=== PATIENT | female | born 1970 | race Caucasian/White ===

== ENCOUNTER → 2020-11-24 | Outpatient (CLI) | payer OTHER ==
[~2020-11-24] MED LIST: B-125000 MCG PO; EYE VITAMIN PO; FENOFIBRATE160 MG PO; FISH OIL 1,2001 EAC3 PO; HUMIRA20 MG/0.2 SUBQ; HYDROCHLOROTHIA25 M1 PO; HYDROCODON-ACE1 EAC7 PO; HYDROXYZINE HCL25 M2 PO; HYOSCYAMINE0.125 MG PO; LEVO-T100 MCG PO; METHOCARBAMOL500 M2 PO; PALMITOYLETHANOLAMID PO; PHENAZOPYRIDIN200 M2 PO; PROBIOTIC1 EAC7 PO; RED YEAST RICE600 MG PO; RELAFEN500 M1 PO; SERTRALINE HCL100 MG PO; TOPAMAX100 MG PO; TRAMADOL 50 MG50 MG PO; TURMERIC 500 M1 EACH PO; VITAMIN C1000 MG PO; VITAMIN D PO; VITAMIN D21250 MCG PO; XANAX 0.25 MG0.25 MG PO; ZANAFLEX4 M1 PO; ZETIA10 MG PO; ZOLMITRIPTAN2.5 MG PO; [UNRECOGNIZED DRUG - OTHER] PO
== END ==
LOC: M.PC 11:40
PROVIDERS: ATTEND Anesthesiology Pain Medicine
DX: G43.909 Migraine, unspecified, not intractable, without status migrainosus (principal); M45.9 Ankylosing spondylitis of unspecified sites in spine; B02.29 Other postherpetic nervous system involvement; K21.9 Gastro-esophageal reflux disease without esophagitis; E11.9 Type 2 diabetes mellitus without complications; N30.10 Interstitial cystitis (chronic) without hematuria; E03.9 Hypothyroidism, unspecified; M19.90 Unspecified osteoarthritis, unspecified site; H81.20 Vestibular neuronitis, unspecified ear; M25.552 Pain in left hip; M50.00 Cervical disc disorder with myelopathy, unspecified cervical region; M50.10 Cervical disc disorder with radiculopathy, unspecified cervical region; M79.7 Fibromyalgia; F32.9 Major depressive disorder, single episode, unspecified; F41.9 Anxiety disorder, unspecified; Z90.710 Acquired absence of both cervix and uterus; Z79.899 Other long term (current) drug therapy; Z88.1 Allergy status to other antibiotic agents; Z88.0 Allergy status to penicillin

== ENCOUNTER → 2020-12-22 | Outpatient (CLI) | payer OTHER | LOC: M.PC 10:08 | PROVIDERS: ATTEND Anesthesiology Pain Medicine | DX: G43.909 Migraine, unspecified, not intractable, without status migrainosus (principal); K21.9 Gastro-esophageal reflux disease without esophagitis; E11.9 Type 2 diabetes mellitus without complications; M19.90 Unspecified osteoarthritis, unspecified site; E03.9 Hypothyroidism, unspecified; M25.552 Pain in left hip; M50.00 Cervical disc disorder with myelopathy, unspecified cervical region; M50.10 Cervical disc disorder with radiculopathy, unspecified cervical region; F32.9 Major depressive disorder, single episode, unspecified; F41.9 Anxiety disorder, unspecified; Z79.899 Other long term (current) drug therapy; Z79.891 Long term (current) use of opiate analgesic ==

== ENCOUNTER → 2021-01-19 | Outpatient (CLI) | payer OTHER | LOC: M.PC 09:15 | PROVIDERS: ATTEND Anesthesiology Pain Medicine | DX: Z76.0 Encounter for issue of repeat prescription (principal); G43.909 Migraine, unspecified, not intractable, without status migrainosus; K21.9 Gastro-esophageal reflux disease without esophagitis; E11.9 Type 2 diabetes mellitus without complications; M19.90 Unspecified osteoarthritis, unspecified site; E03.9 Hypothyroidism, unspecified; M47.12 Other spondylosis with myelopathy, cervical region; M47.22 Other spondylosis with radiculopathy, cervical region; M25.551 Pain in right hip; M50.20 Other cervical disc displacement, unspecified cervical region; F32.9 Major depressive disorder, single episode, unspecified; F41.9 Anxiety disorder, unspecified; M79.7 Fibromyalgia; Z79.899 Other long term (current) drug therapy; Z79.891 Long term (current) use of opiate analgesic ==

== ENCOUNTER → 2021-02-16 | Outpatient (CLI) | payer OTHER | LOC: M.PC 09:48 | PROVIDERS: ATTEND Anesthesiology Pain Medicine | DX: G89.29 Other chronic pain (principal); M54.5 Low back pain; G43.809 Other migraine, not intractable, without status migrainosus; M45.9 Ankylosing spondylitis of unspecified sites in spine; B02.29 Other postherpetic nervous system involvement; K21.9 Gastro-esophageal reflux disease without esophagitis; E11.9 Type 2 diabetes mellitus without complications; H81.09 Meniere's disease, unspecified ear; N30.10 Interstitial cystitis (chronic) without hematuria; E03.9 Hypothyroidism, unspecified; M25.551 Pain in right hip; M25.552 Pain in left hip; M50.00 Cervical disc disorder with myelopathy, unspecified cervical region; M79.7 Fibromyalgia; F41.8 Other specified anxiety disorders ==

== ENCOUNTER → 2021-03-11 | Outpatient (CLI) | payer OTHER | LOC: M.PC 09:49 | PROVIDERS: ATTEND Anesthesiology Pain Medicine | DX: M54.59 Other low back pain (principal); M50.00 Cervical disc disorder with myelopathy, unspecified cervical region; M50.10 Cervical disc disorder with radiculopathy, unspecified cervical region; E11.9 Type 2 diabetes mellitus without complications; K21.9 Gastro-esophageal reflux disease without esophagitis; B02.29 Other postherpetic nervous system involvement; G43.909 Migraine, unspecified, not intractable, without status migrainosus; M79.7 Fibromyalgia; E07.9 Disorder of thyroid, unspecified; F32.9 Major depressive disorder, single episode, unspecified; Z79.899 Other long term (current) drug therapy ==

== ENCOUNTER → 2021-04-08 | Outpatient (CLI) | payer OTHER | LOC: M.PC 10:10 | PROVIDERS: ATTEND Anesthesiology Pain Medicine | DX: M54.50 Low back pain, unspecified (principal); M19.019 Primary osteoarthritis, unspecified shoulder; M45.9 Ankylosing spondylitis of unspecified sites in spine; K21.9 Gastro-esophageal reflux disease without esophagitis; E11.9 Type 2 diabetes mellitus without complications; M25.50 Pain in unspecified joint; H81.09 Meniere's disease, unspecified ear; N30.10 Interstitial cystitis (chronic) without hematuria; E07.89 Other specified disorders of thyroid; G43.909 Migraine, unspecified, not intractable, without status migrainosus; M25.552 Pain in left hip; M54.12 Radiculopathy, cervical region; G95.89 Other specified diseases of spinal cord; M25.551 Pain in right hip; M79.7 Fibromyalgia; B02.29 Other postherpetic nervous system involvement; F34.89 Other specified persistent mood disorders; Z88.0 Allergy status to penicillin; Z88.8 Allergy status to other drugs, medicaments and biological substances; Z79.899 Other long term (current) drug therapy ==

== ENCOUNTER → 2021-05-06 | Outpatient (CLI) | payer OTHER | LOC: M.PC 10:20 | PROVIDERS: ATTEND Anesthesiology Pain Medicine | DX: M45.9 Ankylosing spondylitis of unspecified sites in spine (principal); B02.29 Other postherpetic nervous system involvement; K21.9 Gastro-esophageal reflux disease without esophagitis; E11.9 Type 2 diabetes mellitus without complications; M25.50 Pain in unspecified joint; N30.10 Interstitial cystitis (chronic) without hematuria; G43.909 Migraine, unspecified, not intractable, without status migrainosus; E04.9 Nontoxic goiter, unspecified; M25.552 Pain in left hip; M50.20 Other cervical disc displacement, unspecified cervical region; M79.18 Myalgia, other site; F32.9 Major depressive disorder, single episode, unspecified ==

== ENCOUNTER → 2021-06-03 | Outpatient (CLI) | payer OTHER | LOC: M.PC 10:30 | PROVIDERS: ATTEND Anesthesiology Pain Medicine | DX: M19.011 Primary osteoarthritis, right shoulder (principal); M45.9 Ankylosing spondylitis of unspecified sites in spine; B02.29 Other postherpetic nervous system involvement; K21.9 Gastro-esophageal reflux disease without esophagitis; E11.9 Type 2 diabetes mellitus without complications; M25.50 Pain in unspecified joint; N30.10 Interstitial cystitis (chronic) without hematuria; E07.89 Other specified disorders of thyroid; G43.809 Other migraine, not intractable, without status migrainosus; M25.552 Pain in left hip; M50.00 Cervical disc disorder with myelopathy, unspecified cervical region; M50.20 Other cervical disc displacement, unspecified cervical region; M25.551 Pain in right hip; M79.7 Fibromyalgia; F41.8 Other specified anxiety disorders; Z88.0 Allergy status to penicillin; Z88.8 Allergy status to other drugs, medicaments and biological substances; Z79.899 Other long term (current) drug therapy ==

== ENCOUNTER → 2021-07-06 | Outpatient (CLI) | payer OTHER ==
[~2021-07-06] MED LIST changes: -LEVO-T100 MCG PO; +LEVO-T25 MCG PO
== END ==
LOC: M.PC 06-29 09:10
PROVIDERS: ATTEND Anesthesiology Pain Medicine
DX: M45.9 Ankylosing spondylitis of unspecified sites in spine (principal); K21.9 Gastro-esophageal reflux disease without esophagitis; E11.9 Type 2 diabetes mellitus without complications; M25.50 Pain in unspecified joint; N30.10 Interstitial cystitis (chronic) without hematuria; E07.89 Other specified disorders of thyroid; M25.511 Pain in right shoulder; M79.7 Fibromyalgia; M25.552 Pain in left hip; F34.9 Persistent mood [affective] disorder, unspecified; F41.9 Anxiety disorder, unspecified; M50.20 Other cervical disc displacement, unspecified cervical region; G43.909 Migraine, unspecified, not intractable, without status migrainosus; Z88.0 Allergy status to penicillin; Z88.8 Allergy status to other drugs, medicaments and biological substances; Z79.899 Other long term (current) drug therapy